=== PATIENT | female | born 1960 | race Two or more races ===

== ENCOUNTER 2017-04-16 15:40 | Emergency (ER) | payer OTHER ==
[~2017-04-16] VITALS: Ht 167.6 cm; Wt 77.6 kg
[2017-04-16 17:22] VITALS: BP 145/78
== END 2017-04-16 17:23 | disposition home or self-care (01) ==
LOC: ER 15:40
DX: J40 Bronchitis, not specified as acute or chronic (principal); I10 Essential (primary) hypertension; E11.9 Type 2 diabetes mellitus without complications
CPT/HCPCS: 99283; A4663